=== PATIENT | male | born 1970 | race Caucasian/White ===

== ENCOUNTER → 2019-09-13 08:30 | Outpatient (CLI) | payer BC, SELFPAY ==
--- NOTE | 2019-09-06 02:49 | HP_ITS ---
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 Is patient in pain?: Yes PFSH Medical History (Updated 09/06/19 @ 14:41 by Wilma Medina) Intermittent diarrhea (Acute) Nausea (Acute) Abdominal pain (Acute) Surgical History (Updated 09/06/19 @ 14:41 by Wilma Medina) No significant past surgical history (Acute) Family History (Updated 09/06/19 @ 14:42 by Wilma Medina) Mother Arthritis Lung cancer Liver cancer Kidney disease Diabetes Social History (Updated 09/06/19 @ 14:49 by Dimitris Sims MD) Smoking Status: Current every day smoker Smokeless tobacco user: snuff alcohol intake: current alcohol intake frequency: a few times a month substance use type: does not use caffeine: Yes what type of physical activity do you participate in: none frequency: does not exercise HPI HPI HPI: FELIPE ESTRADA, is a 49 M who presents to the office today for HPI HPI Surgical H&P: Yes HPI: FELIPE ESTRADA, is a 49 M who presents to the office today for umbilical hernia. The patient reports that is been there for at least 6 months and it is bothering him more and more. ROS General General: No weight change or fatigue Cardio Cardiovascular: No murmur, pacemaker, heart disease, atrial fibrillation, high blood pressure, heart attack, heart stent, palpitations, shortness of breat with exertion or chest pain Psych Psychiatric: No depression or anxiety Resp Respiratory: No shortness of breath, No sleep apnea, No cough, No COPD, No asthma, No emphysema, No wheezing Gastro Gastrointestinal: Yes abdominal pain, No nausea or vomiting, No diarrhea, No constipation, No blood in stool, No acid reflux, No hemorrhoids, No ulcers, No gallbladder problem, No black,tarry stools Additional Details: Umbilical hernia José Antonio Hematologic: No blood thinners Exam Const General: cooperative Orientation: alert, oriented x3 Resp Effort & Inspection: normal respiratory effort Auscultation: clear to auscultation bilaterally Cardio Rate: regular rate Rhythm: regular rhythm Heart Sounds: no murmurs GI Inspection: non-distended Palpation: soft, hernia umbilical, nontender Assessment & Plan Problems 1. Umbilical hernia without obstruction and without gangrene K42.9 Plan The patient has an obvious umbilical hernia. It is easily reducible. The defect is less than 1 cm. He is also having a small amount of bulging just superior to the umbilicus. It is possible that he has a very small ventral hernia just superior to this. I discussed repair with the patient in detail. He would like to avoid mesh if possible. I did agree to perform a suture repair. I also informed her that he would have to do no heavy lifting following surgery. Dimitris Sims MD Pager: [facility] [address] [place] [address], [address] [place] [address] Office: Coding Level of Care Code Off vis,new,level 3 Diagnoses Umbilical hernia without obstruction and without gangrene K42.9 ??Obstruction and gangrene presence: without obstruction or gangrene 09/06/19 1450 <Electronically signed by Dimitris gatica MD> Date _ Dimitris Sims MD I have re-examined the patient. There are no clinical changes since date of exam.
[2019-09-06 14:42] VITALS: BMI 30.8
--- NOTE | 2019-09-13 07:17 | EKG12_ITS ---
Test Reason : PRE-OP Blood Pressure : / mmHG Vent. Rate : 054 BPM Atrial Rate : 054 BPM P-R Int : 198 ms QRS Dur : 098 ms QT Int : 412 ms P-R-T Axes : 039 031 051 degrees QTc Int : [address] & T wave abnormality, consider anterior ischemia Abnormal ECG Confirmed by SABIHA SANON, JERICA ([id number]), electronic news gathering editor SHANEL ESCOBAR ([id number]) on 09/18/2019 11:16:26 AM Referred By: Dimitris Sims Confirmed By:JERICA LANDIS MD
[2019-09-13 07:42] VITALS: BP 111/64; PULSE 68; RESP 16; TEMP 36.4; O2SAT 96; BMI 30.1
[2019-09-13] MEDS: Lactated Ringers 1,000 ML 100 ML IV (07:57)
[2019-09-13 08:10] LABS: Hematocrit 44.2 % (40-54); Hemoglobin 14.6 g/dL (13.0-16.5); Mean Corpuscular Hgb 28.7 pg (27.0-32.0); Mean Corpuscular Volume 86.8 fL (80-94); Mean Platelet Vol. 10.2 fl (6.2-12.0); Platelet Count 219 K/mm3 (150-450); RBC Distribution Width CV 12.3 % (11.6-14.6); RBC Distribution Width SD 39.4 fl (35.1-43.9); Red Blood Count 5.09 M/mm3 (4.6-6.2)
--- NOTE | 2019-09-13 08:35 | SUR.PREOP ---
Dr. Wilhelm at bedside discussing with pt and pt's abnormal EKG and surgery to be cancelled. This RN has called [facility] and appointment is made for Monday 09/18 to see [email or web address] android developer, Pt and Pt's informed and verbalize understanding
--- NOTE | 2019-09-15 11:00 | PCM.OPRPT ---
Problem List (1) Umbilical hernia Status: Acute Qualifiers: Obstruction and gangrene presence: without obstruction or gangrene Qualified Code(s): K42.9 - Umbilical hernia without obstruction or gangrene Report of Operation Date of Procedure: 09/13/19 Pre-Operative Diagnosis: Umbilical hernia Post-Operative Diagnosis: Same Surgery/Procedure Performed:: Umbilical hernia repair Description of Procedure: Patient was brought back to the operating room and general anesthesia was induced. A curvilinear incision was marked in a superior umbilicus and injected with local anesthetic. An incision was then made and deepened to the fascia. The umbilical stalk was surrounded and taken off of the hernia sac. The hernia sac was easily reduced. The defect was very small. It was closed with interrupted 0 PDS sutures and then the umbilical stalk was sutured to the anterior fascia using a 3-0 Vicryl suture. The skin was reapproximated with a running 4-0 Monocryl suture and Steri-Strips and bandages. Patient tolerated the procedure well was brought to PACU in stable condition. - Admit VTE Documentation VTE Mechan Device Prophylaxis: SCD's
[2019-09-18 10:56] VITALS: BMI 30.1
== END ==
PROVIDERS: Anesthesiology; Family Provider Family Medicine; PCP Family Medicine; Referring Provider Surgery; Visit Provider Surgery
PROC: (CPT 49585; principal; 2019-09-13 08:30)
DX: K42.9 Umbilical hernia without obstruction or gangrene (principal); F17.200 Nicotine dependence, unspecified, uncomplicated; F17.220 Nicotine dependence, chewing tobacco, uncomplicated
CPT/HCPCS: 49585; 85027; 93005; J7120; J2405

== ENCOUNTER 2019-09-27 09:26 | Day surgery (SDC) | payer BC, SELFPAY ==
--- NOTE | 2019-09-06 02:49 | HP_ITS ---
Intake Vital Signs 09/06/19 Height 5 ft 10.5 in 09/06/19 Weight: 218 lb 09/06/19 BMI 30.8 09/06/19 BP 123/84 H 09/06/19 Blood Pressure Location Rt brachial 09/06/19 Position Sitting 09/06/19 Respiration 14 09/06/19 Pulse 73 09/06/19 Pulse Source Monitor 09/06/19 Temp 98.5 F 09/06/19 Temp Source Oral 09/06/19 Pulse Oximetry (%) 97 09/06/19 Oxygen Delivery Method room air Intake Visit Reasons: Umbilical Hernia Car Parker Required: No Is patient in pain?: Yes PFSH Medical History (Updated 09/06/19 @ 14:41 by Wilma Medina) Intermittent diarrhea (Acute) Nausea (Acute) Abdominal pain (Acute) Surgical History (Updated 09/06/19 @ 14:41 by Wilma Medina) No significant past surgical history (Acute) Family History (Updated 09/06/19 @ 14:42 by Wilma Medina) Mother Arthritis Lung cancer Liver cancer Kidney disease Diabetes Social History (Updated 09/06/19 @ 14:49 by Dimitris Sims MD) Smoking Status: Current every day smoker Smokeless tobacco user: snuff alcohol intake: current alcohol intake frequency: a few times a month substance use type: does not use caffeine: Yes what type of physical activity do you participate in: none frequency: does not exercise HPI HPI HPI: FELIPE ESTRADA, is a 49 M who presents to the office today for HPI HPI Surgical H&P: Yes HPI: FELIPE ESTRADA, is a 49 M who presents to the office today for umbilical hernia. The patient reports that is been there for at least 6 months and it is bothering him more and more. ROS General General: No weight change or fatigue Cardio Cardiovascular: No murmur, pacemaker, heart disease, atrial fibrillation, high blood pressure, heart attack, heart stent, palpitations, shortness of breat with exertion or chest pain Psych Psychiatric: No depression or anxiety Resp Respiratory: No shortness of breath, No sleep apnea, No cough, No COPD, No asthma, No emphysema, No wheezing Gastro Gastrointestinal: Yes abdominal pain, No nausea or vomiting, No diarrhea, No constipation, No blood in stool, No acid reflux, No hemorrhoids, No ulcers, No gallbladder problem, No black,tarry stools Additional Details: Umbilical hernia José Antonio Hematologic: No blood thinners Exam Const General: cooperative Orientation: alert, oriented x3 Resp Effort & Inspection: normal respiratory effort Auscultation: clear to auscultation bilaterally Cardio Rate: regular rate Rhythm: regular rhythm Heart Sounds: no murmurs GI Inspection: non-distended Palpation: soft, hernia umbilical, nontender Assessment & Plan Problems 1. Umbilical hernia without obstruction and without gangrene K42.9 Plan The patient has an obvious umbilical hernia. It is easily reducible. The defect is less than 1 cm. He is also having a small amount of bulging just superior to the umbilicus. It is possible that he has a very small ventral hernia just superior to this. I discussed repair with the patient in detail. He would like to avoid mesh if possible. I did agree to perform a suture repair. I also informed her that he would have to do no heavy lifting following surgery. Dimitris Sims MD Pager: [facility] [address] [place] [address], [address] [place] [address] Office: Coding Level of Care Code Off vis,new,level 3 Diagnoses Umbilical hernia without obstruction and without gangrene K42.9 ??Obstruction and gangrene presence: without obstruction or gangrene 09/06/19 1450 <Electronically signed by Dimitris gatica MD> Date _ Dimitris Sims MD I have re-examined the patient. There are no clinical changes since date of exam.
[2019-09-18 10:56] VITALS: BMI 30.1
[2019-09-27] VITALS (7 sets, daily range): BP systolic 94–108; BP diastolic 53–72; PULSE 50–64; RESP 14–16; TEMP 36.3–36.8; O2SAT 92–98; BMI 30.1
[2019-09-27] MEDS: Lactated Ringers 1,000 ML 100 ML IV (10:21)
[2019-09-27] MEDS: Bupiv/Epi 0.5% Mpf 30 ML Vial (11:06)
--- NOTE | 2019-09-27 11:25 | PCM.OPRPT ---
Problem List (1) Umbilical hernia Status: Acute Qualifiers: Obstruction and gangrene presence: without obstruction or gangrene Qualified Code(s): K42.9 - Umbilical hernia without obstruction or gangrene (2) Ventral hernia Status: Acute Qualifiers: Obstruction and gangrene presence: without obstruction or gangrene Qualified Code(s): K43.9 - Ventral hernia without obstruction or gangrene Report of Operation Date of Procedure: 09/27/19 Pre-Operative Diagnosis: 1. Umbilical hernia. 2. Ventral hernia Post-Operative Diagnosis: Same Surgery/Procedure Performed:: 1. Umbilical hernia repair. 2. Ventral hernia repair Description of Procedure: The patient was brought back to the operating room and MAC anesthesia was induced. The abdomen was prepped and draped in usual sterile fashion. A curvilinear incision was marked above the umbilicus and anesthetized with local anesthetic. Incision was then made and the umbilical stalk was elevated off of the fascia. This dissection of the subcutaneous base was also taken superiorly. The patient had a small umbilical hernia measuring 8 mm. He also had a ventral hernia above this that was separate that measured approximately 5 mm. Both of the small amount of fat protruding from these hernias was reduced. Both of the defects were closed with interrupted 0 PDS sutures. The defects were both completely closed. The umbilical stalk was then re-approximated to the fascia using a 3-0 Vicryl suture and the incision was irrigated and suctioned dry. The incision was then closed with interrupted 3-0 Vicryl sutures as well as a running 4-0 Monocryl suture. Steri-Strips and and a bandage were applied. Patient tolerated the procedure well was brought to PACU in stable condition.
--- NOTE | 2019-09-27 11:30 | PCM.DC.HER ---
Discharge Diet: Light diet - advance as tolerated Discharge Activity: Return to Normal Activity, May Not Drive - for 2-3 days or while taking narcotic pain meds., May Shower - with the bandage in place 1-2 days after surgery. Lifting Restrictions: 20 pounds for 4 weeks. Additional Activity Instructions:: Climbing stairs is fine, walking is encouraged. Sitting in bed may be uncomfortable. Sitting up using your lateral muscles (sitting up sideways) is usually more comfortable. Do not drive, work heavy equipment of sign legal documents for 24 hours. Pain medications may cause nausea, you should typically eat light foods as you take your pain medications. Pain medications may also cause constipation. If you have difficulty with this, discuss with your doctor. Call your doctor if your incision/area has: Continuous Slow Oozing, Sudden Increased Bleeding, Increased Pain/ Swelling, Increased Redness, Foul Smelling Discharge Call your doctor if you observe: Fever of 101 or Higher Suture Line Care: Avoid Pulling/Pushing, Avoid Pinching/Bending Change Dressing in (Days):: 3 - Leave steri-strips for 1 week. May protect with a guaze bandaid. Cleanse incision/area with: Keep Dressing Clean & Dry Allergies/Adverse Reactions: Allergies Penicillins Allergy (Unknown, Verified 09/26/19 10:34) Unknown Medications to take at Discharge Oxycodone HCl/Acetaminophen [Percocet 5-325 mg Tablet] 1 - 2 tab PO Q6H PRN 5 Days #15 tablet 09/27/19 The following prescriptions were given: Oxycodone HCl/Acetaminophen [Percocet 5-325 mg Tablet] 1 - 2 tab PO Q6H PRN 5 Days #15 tablet PRN Reason: Pain Score 4-10/10 Transmission Status: Sent to [facility] Primary Care Physician: Sammy Min MD [Primary Care Provider] - Test Results: Test results from this visit will be discussed in further detail at your follow-up appointment, if applicable.
[2019-09-27] MEDS: Acetaminophen 325 MG Tablet 650 MG PO (12:52)
[2019-09-27] MEDS: oxyCODONE 5 MG Tablet 10 MG PO (12:53)
== END 2019-09-27 13:14 | disposition home or self-care (01) ==
LOC: SDC 09:27 → AC 09:36
PROVIDERS: PCP Family Medicine; Referring Provider Surgery; Visit Provider Surgery
PROC: (CPT 49560; principal; 2019-09-27 10:45)
DX: K42.9 Umbilical hernia without obstruction or gangrene (principal); K43.9 Ventral hernia without obstruction or gangrene; F17.220 Nicotine dependence, chewing tobacco, uncomplicated; F17.200 Nicotine dependence, unspecified, uncomplicated; G47.33 Obstructive sleep apnea (adult) (pediatric); Z91.19 Patient's noncompliance with other medical treatment and regimen
CPT/HCPCS: 00830; 49560; 49585; 85027; 93005; J7120; J2405

== ENCOUNTER → 2019-11-12 | Outpatient (CLI) | payer BC, SELFPAY ==
[2019-09-27 09:57] VITALS: BMI 30.1
--- NOTE | 2019-11-12 07:08 | ECHOCS_ITS ---
Reason For Study: ABN EKG Procedure This was a 2D Doppler, Color Flow transthoracic echocardiogram. Contrast injection was performed. Exam performed in department. Left Ventricle Normal LV size. The estimated ejection fraction is 55 %. Normal diastology for age. No regional wall motion abnormalities noted. Right Ventricle Normal RV size. Normal systolic function. Atria Normal left atrium. Normal right atrium. No doppler evidence for ASD. Mitral Valve There is no mitral valve stenosis. Trivial mitral valve insufficiency. Tricuspid Valve There is no tricuspid stenosis. Trivial tricuspid valve insufficiency. Pulmonary artery systolic pressure is 25 mmHg. Aortic Valve Trisinus/trileaflet aortic valve. There is no aortic stenosis. No aortic valve insufficiency. Pulmonic Valve There is no pulmonic valvular stenosis. No pulmonic valve insufficiency. Great Vessels Normal aortic root. Pericardium/Pleural No pericardial effusion. Medication Diluted definity 2.0ml given slow IV push to enhance endocardial definition. MMode/2D Measurements & Calculations LVIDd: 5.3 cm IVSd: 0.69 cm Ao root diam: 3.5 cm LVIDs: 4.0 cm LVPWd: 0.74 cm RVDd: 3.8 cm FS: 24.8 % LAV(MOD-bp): 59.8 ml EDV(MOD-sp4): 141.4 ml EDV(MOD-sp2): 158.5 ml LAV(MOD-bp) Indexed: 27.5 ml/m2 ESV(MOD-sp4): 95.8 ml EF(MOD-sp2): 60.4 % LAV(MOD-sp2): 63.6 ml EF(MOD-sp4): 32.2 % LAV(MOD-sp4): 50.8 ml SV(MOD-sp4): 45.5 ml SV(MOD-sp2): 95.8 ml LA A4 area: 19.1 cm2 LA dimension(2D): 4.7 cm RA A4 area: 16.4 cm2 Time Measurements MV dec time: 0.17 sec Doppler Measurements & Calculations MV E max polo: 86.4 cm/sec Lat Peak E' Polo: 8.4 cm/sec Med Peak E' Polo: 11.7 cm/sec MV A max polo: 58.6 cm/sec E/E' lat: 10.3 E/E' med: 7.4 MV E/A: 1.5 Ao V2 max: 121.5 cm/sec LV V1 max: 106.3 cm/sec PA V2 max: 100.9 cm/sec Ao max P.9 mmHg LV V1 max P.5 mmHg TR max polo: 212.3 cm/sec TR max P.1 mmHg Interpretation Summary The study was technically difficult. Contrast injection was performed. The estimated ejection fraction is 55 %. Normal diastology for age. Trivial mitral valve insufficiency. Trivial tricuspid valve insufficiency. Pulmonary artery systolic pressure is 25 mmHg. The study was technically difficult. Contrast injection was performed. Ordering Physician: Jenni Gonzalez Referring Physician: MAK DRISCOLL Performed By: Doris Gong, BONILLA, RVT
--- NOTE | 2019-11-12 13:33 | STRESSREP_ITS ---
Stress Test Report Date: 11/12/2019 Procedure: Exercise tolerance test/imaging study Indications: Abnormal EKG, dyspnea on exertion Consent: Per the patient Procedure: The patient exercised on a Gallito protocol for 9 minutes achieving a peak heart rate of 153 bpm (88% predicted maximal heart rate) with a peak blood pressure 180/78 mmHg and a peak MET capacity of 10.1 METs. The baseline ECG demonstrated normal sinus rhythm, nonspecific ST-T changes. The peak exercise ECG demonstrated no significant ischemic changes. EKG during recovery revealed no significant ischemic changes [There were no cardiac dysrhythmias pretest, during exercise, or recovery]. The functional capacity was considered normal for age. There was [no complaint of chest discomfort during exercise or recovery]. The examination was discontinued secondary to shortness of breath. Impression: 1. Technically adequate (percent predicted maximal heart rate greater than 85%) exercise tolerance test 2. Stress test is negative for exercise-induced EKG changes of ischemia 3. The test test is negative for exercise-induced chest pain 4. Functional capacity is normal for age 5. Nuclear images pending Myocardial perfusion imaging study: Technique: The patient was injected with 14.7 mCi of technetium 99m Cardiolite and subsequently rest SPECT Cardiolite nuclear imaging was obtained in the horizontal long, vertical long, and short axis views. The patient exercised on a Gallito protocol. Please see above for details. The patient was injected with 44.6 mCi of technetium 99m Cardiolite and subsequently stress SPECT Cardiolite nuclear imaging was obtained in the horizontal long, vertical long, and short axis views. A gated Cardiolite study at peak stress was obtained. Interpretation: Rest and stress SPECT Cardiolite nuclear imaging status post realignment, normalization, and attenuation correction, demonstrates mild decrease in the radioisotope uptake in the apex on both the rest and stress images. There is no significant reversibility. The gated Cardiolite study demonstrates no significant regional wall motion abnormalities. These findings are suggestive of apical thinning, normal variant. There is no evidence of significant ischemia or infarction.. The reported LVEF is 60 %. Impression: 1. There is no evidence of significant ischemia or infarction. 2. The gated Cardiolite study reports an LVEF of 60 %. This note was generated with [employer] software. It may contain incorrect words, spelling, and punctuation that were not noted in checking the note before signing.
== END | disposition home or self-care (01) ==
LOC: CVS 07:08
PROVIDERS: PCP Family Medicine; Referring Provider Specialist; Visit Provider Specialist
DX: R94.31 Abnormal electrocardiogram [ECG] [EKG] (principal); R06.09 Other forms of dyspnea
CPT/HCPCS: 78452; 93017; 93306; A9500; Q9957; A4216; C8929

== ENCOUNTER → 2020-10-27 11:39 | Outpatient (CLI) | payer BC, SELFPAY ==
[2020-03-09 14:36] VITALS: BMI 31.2
[2020-10-27 15:23] LABS: Erythrocyte Sedimentation Rate 6 mm/hr (0-20)
[2020-10-27 15:27] LABS: Absolute Lymphocyte Count 0.76 X10^3/uL (0.83-4.51); Basophil# 0.02 X10^3/uL; Basophil% 0.5 % (0-1); Eosinophil# 0.08 X10^3/uL; Eosinophils% 1.9 % (0-5); Lymphocyte # 0.76 X10^3/ul (4.0); Lymphocyte % 17.7 % (19-41); Mean Corp Hgb Conc 31.9 g/dL (32-36); Mean Corpuscular Hgb 28.5 pg (27.0-32.0); Mean Corpuscular Volume 89.4 fL (80-94); Mean Platelet Vol. 10.3 fl (6.2-12.0); Monocyte# 0.41 X10^3/uL; Monocyte% 9.5 % (0-10); NRBC Flagged by Analyzer 0 % (0-5); Neutrophil # 3.02 X10^3/uL (2.7-7.7); Neutrophil % 70.2 % (47-70); Platelet Count 213 K/mm3 (150-450); RBC Distribution Width CV 12.7 % (11.6-14.6); RBC Distribution Width SD 41.7 fl (35.1-43.9); Red Blood Count 5.26 M/mm3 (4.6-6.2); White Blood Count 4.3 K/mm3 (4.4-11.0)
[2020-10-27 15:35] LABS: AST(SGOT) 19 U/L (15-37); Alanine Aminotransfer ALT/SGPT 44 U/L (16-61); Albumin, Serum 3.8 g/dL (3.2-5.0); Alkaline Phosphatase 87 U/L (45-117); Anion Gap 5 (5-15); BUN 13 mg/dL (7-18); BUN/Creat Ratio 11.4 RATIO (10-20); CRP 6.48 mg/L (0.0-3.0); Calcium,Total 8.8 mg/dL (8.5-10.1); Chloride 107 mmol/L (98-107); Creatinine, Serum 1.14 mg/dL (0.70-1.30); EST Glomerular Filtration Rate 73 mL/min (>60); Est Glom Filt Rate - Afr Amer 88 mL/min (>60); Globulin 3.7 g/dL (2.2-4.2); Glucose 95 mg/dL (74-106); Lipase 72 U/L (73-393); Magnesium 2.1 mg/dL (1.6-2.6); Protein, Total 7.5 g/dL (6.4-8.2); Sodium Level 139 mmol/L (136-145); Thyroid Stim Hormone (TSH) 2.07 uIU/mL (0.358-3.74)
[2020-10-30 16:30] LABS: ANTINUCLEAR ANTIBODIES DIRECT Negative (Negative)
== END ==
PROVIDERS: PCP Family Medicine; Referring Provider Family Medicine; Visit Provider Family Medicine
DX: R10.814 Left lower quadrant abdominal tenderness (principal); R19.7 Diarrhea, unspecified
CPT/HCPCS: 36415; 80053; 83690; 83735; 84443; 85025; 85652; 86038; 86140

== ENCOUNTER 2020-10-31 07:17 | Emergency (ER) | payer BC, SELFPAY ==
[2020-03-09 14:36] VITALS: BMI 31.2
[2020-10-31 07:20] VITALS: BP 112/43; PULSE 98; RESP 17; TEMP 36.7; O2SAT 97; BMI 29.7
--- NOTE | 2020-10-31 07:42 | ED.VIS.GEN ---
History of Present Illness Chief Complaint: Nausea/Vomiting/Diarrhea Informant: Patient Limited by: Arnie Narrative: 50-year-old male with no significant medical history presenting with nausea/vomiting. Patient states that his had COVID-19 symptoms on Monday and was diagnosed on Monday. He started having nausea/vomiting on . He denies chest pain or palpitations but does state that he has a mild cough. He has been nauseous. He complains of body aches, chills. He is not had fever.. Past Medical History - Allergies and Home Meds Allergies/Adverse Reactions: Allergies Penicillins Allergy (Unknown, Verified 10/31/20 07:19) Unknown Primary Care Physician: Sammy Min MD [Primary Care Provider] - Prior records reviewed: Yes Surgical History: noncontributory Lives: Spouse/ Significant Other Alcohol: None Drugs: None Review of Systems General: Reports: Chills. Denies: Fever, Malaise, Subjective Eyes: Denies: Visual changes - bilaterally, Diplopia ENT: Denies: Rhinorrhea, Sore throat Respiratory: Reports: Cough. Denies: Dyspnea, Sputum Genitourinary: Denies: Dysuria, Hematuria, Frequency Musculoskeletal: Reports: Myalgias. Denies: Arthralgias, Neck pain, Back pain Skin: Denies: Rash, Abscess Neurological: Denies: Headache, Weakness, Parasthesia Psych: Denies: Depression, Anxiety Endocrine: Denies: Polyuria, Polydipsia Hematologic: Denies: Easy bruising, Easy bleeding Physical Exam Vital Signs/Narrative: Vital Signs Temp Pulse Resp BP Pulse Ox 10/31/20 07:20 98.1 F 98 17 112/43 L 97 Inital Vital Signs reviewed: Yes General: Well nourished, No Acute Distress Head: Normocephalic, Atraumatic Eyes: Perrl, EOMI ENT: Moist mucous membranes, No rhinorrhea Cardiovascular: Regular rate, Regular rhythm Extremities: Nontender, No edema Skin: Normal color, No rash. Negative for: Cyanosis, Diaphoresis, Jaundice Neurological: Alert, Oriented x3, Weakness Psychological: Normal affect, Normal Mood Diagnostic/Tx/Re-eval Clinical Impression(s) from Imaging Studies Chest X-Ray 10/31/20 07:43 IMPRESSION: No active pulmonary disease. Electronically Signed: Kush Whyte MD at 8:38 EST Tel , Service support , Laboratory Data 10/31/20 10/31/20 07:45 07:45 WBC 4.7 RBC 5.65 Hgb 15.9 Hct 49.5 MCV 87.6 MCH 28.1 MCHC 32.1 RDW Std Deviation 39.8 RDW Coeff of Maite 12.4 Plt Count 222 MPV 10.1 Immature Gran % (Auto) 0.200 Neut % (Auto) 69.9 Lymph % (Auto) 19.7 [place] % (Auto) 9.4 Eos % (Auto) 0.6 Baso % (Auto) 0.2 Absolute Neuts (auto) 3.3 Absolute Lymphs (auto) 0.92 Nucleated RBC % 0 Sodium 138 Potassium 3.8 Chloride 104 Carbon Dioxide 28.0 Anion Gap 6 BUN 13 Creatinine 1.36 H Estim Creat Clear Calc 70.75 Est GFR (MDRD) Af Amer 72 Est GFR (MDRD) Non-Af 59 L BUN/Creatinine Ratio 9.6 L Glucose 113 H Calcium 8.8 Total Bilirubin 0.40 AST 21 ALT 37 Alkaline Phosphatase 87 Total Protein 8.2 Albumin 3.9 Globulin 4.3 H Albumin/Globulin Ratio 0.9 - Medical Decision Making 50-year-old male presenting with nausea, vomiting secondary to likely illness with COVID-19. ODT Zofran with good relief of his nausea. Lab work-up was unremarkable with exception of a slight bump in his creatinine. Chest x-ray as interpreted by myself shows no acute cardiopulmonary process. Patient did test positive for COVID-19. He was given quarantine and return precautions. He is given Zofran for home. Impression: 1. Nausea/vomiting 2. COVID-19 ED Disposition - Plan for ED Patient: Disposition: Home or Assisted Living Instructions: Coronavirus Disease 2019 (COVID-19): Caring for Yourself or Others, ED Diet for Vomiting or Diarrhea Adult Prescriptions: Ondansetron [Zofran Odt] 4 mg PO Q8H PRN PRN #20 tab PRN Reason: Nausea Prescription Printed Referrals: Sammy Min MD [Primary Care Provider] -
--- NOTE | 2020-10-31 07:43 | RAD_ITS ---
STUDY: X-RAY CHEST REASON FOR EXAM: Male, 50 years old. Cough. TECHNIQUE: Single AP portable view of the chest. COMPARISON: 01/31/2020 FINDINGS: The lungs are somewhat hyperinflated. No focal infiltrate is seen. There is no demonstrated pleural abnormality. Normal size heart. Normal mediastinum and yoly. Normal visualized pulmonary arteries. Normal visualized aortic arch and descending thoracic aorta. Normal visualized thoracic spine. Normal visualized ribs, clavicles, and shoulders. There is no demonstrated abnormality of the visualized soft tissue structures of the upper abdomen. RAD/Chest 1 View (Portable) IMPRESSION: No active pulmonary disease. Electronically Signed: Kush Whyte MD at 8:38 EST Tel , Service support ,
[2020-10-31] MEDS: Ondansetron ODT 4 MG Tablet PO (07:58)
[2020-10-31 08:05] LABS: Absolute Lymphocyte Count 0.92 X10^3/uL (0.83-4.51); Absolute Neutrophil Count 3.3 X10^3/uL (2.0-7.7); Basophil# 0.01 X10^3/uL; Basophil% 0.2 % (0-1); Eosinophil# 0.03 X10^3/uL; Eosinophils% 0.6 % (0-5); Hematocrit 49.5 % (40-54); Hemoglobin 15.9 g/dL (13.0-16.5); Lymphocyte # 0.92 X10^3/ul (4.0); Lymphocyte % 19.7 % (19-41); Mean Corp Hgb Conc 32.1 g/dL (32-36); Mean Corpuscular Hgb 28.1 pg (27.0-32.0); Mean Corpuscular Volume 87.6 fL (80-94); Mean Platelet Vol. 10.1 fl (6.2-12.0); Monocyte# 0.44 X10^3/uL; Monocyte% 9.4 % (0-10); NRBC Flagged by Analyzer 0 % (0-5); Neutrophil # 3.26 X10^3/uL (2.7-7.7); Neutrophil % 69.9 % (47-70); Platelet Count 222 K/mm3 (150-450); RBC Distribution Width CV 12.4 % (11.6-14.6); RBC Distribution Width SD 39.8 fl (35.1-43.9); Red Blood Count 5.65 M/mm3 (4.6-6.2); White Blood Count 4.7 K/mm3 (4.4-11.0)
[2020-10-31 08:20] LABS: ALB/GLOB Ratio 0.9 RATIO (0.9-2.4); AST(SGOT) 21 U/L (15-37); Alanine Aminotransfer ALT/SGPT 37 U/L (16-61); Albumin, Serum 3.9 g/dL (3.2-5.0); Alkaline Phosphatase 87 U/L (45-117); Anion Gap 6 (5-15); BUN 13 mg/dL (7-18); BUN/Creat Ratio 9.6 RATIO (10-20); Calcium,Total 8.8 mg/dL (8.5-10.1); Chloride 104 mmol/L (98-107); Creatinine, Serum 1.36 mg/dL (0.70-1.30); EST Glomerular Filtration Rate 59 mL/min (>60); Est Glom Filt Rate - Afr Amer 72 mL/min (>60); Estimated Creatinine Clearance 70.75 ml/min; Globulin 4.3 g/dL (2.2-4.2); Glucose 113 mg/dL (74-106); Potassium 3.8 mmol/L (3.5-5.1); Protein, Total 8.2 g/dL (6.4-8.2); Sodium Level 138 mmol/L (136-145)
[2020-10-31 09:43] VITALS: BP 141/79; PULSE 62; RESP 15; O2SAT 97
== END 2020-10-31 09:43 | disposition home or self-care (01) ==
PROVIDERS: Emergency Provider Student in an Organized Health Care Education/Training Program; PCP Family Medicine
DX: U07.1 COVID-19 (principal); R11.2 Nausea with vomiting, unspecified
CPT/HCPCS: 71045; 80053; 85025; 87426; 99283; A4216

== ENCOUNTER → 2020-11-10 | Outpatient (CLI) | payer BC, SELFPAY ==
[2020-10-31 07:20] VITALS: BMI 29.7
[2020-11-13 09:36] LABS: H. PYLORI STOOL AG Negative (Negative)
[2020-11-13 13:43] LABS: Giardia Lamblia, Stool EIA Negative (Negative)
== END | disposition home or self-care (01) ==
LOC: LABSPEC 13:36
PROVIDERS: PCP Family Medicine; Referring Provider Family Medicine; Visit Provider Family Medicine
DX: R10.814 Left lower quadrant abdominal tenderness (principal)
CPT/HCPCS: 87177; 87209; 87329; 87506

== ENCOUNTER 2020-12-25 06:27 | Day surgery (SDC) | payer BC, SELFPAY ==
[2020-12-01 14:04] VITALS: BMI 28.8
--- NOTE | 2020-12-25 06:35 | HP.PCM_ITS ---
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 Is patient in pain?: Yes (llq abdomen) Allergies Penicillins Allergy (Unknown, Verified 12/01/20 14:05) Unknown Medications omeprazole 20 mg tablet,delayed release 20 mg PO DAILY #60 tablet 12/01/20 [Rx Confirmed 12/01/20] [facility] Medical History Abnormal EKG (Chronic) Nausea (Chronic) Abdominal pain (Resolved) Chest discomfort (Resolved) Dyspnea on exertion (Resolved) Intermittent diarrhea (Resolved) Umbilical hernia (Resolved) Umbilical hernia (Resolved) Ventral hernia (Resolved) Preop cardiovascular exam (Inactive) Surgical History History of umbilical hernia repair (Resolved) History of ventral hernia repair (Resolved) Family History Mother Arthritis Lung cancer Liver cancer Kidney disease Diabetes Brother Thyroid disorder Ulcerative colitis Social History (Updated 12/01/20 @ 14:[address] Dimitris Sims MD) Smoking Status: Former smoker Smokeless tobacco user: snuff how long ago did patient quit smokin years ago alcohol intake: current alcohol intake frequency: a few times a month substance use type: does not use caffeine: Yes Type: carbonated beverages Number of servings: 1 what type of physical activity do you participate in: none frequency: does not exercise HPI HPI HPI: FELIPE ESTRADA, is a 50 M who presents to the office today for HPI HPI Surgical H&P: Yes HPI: FELIPE ESTRADA, is a 50 M who presents to the office today for left lower quadrant pain as well as diarrhea. The patient was also experiencing GERD. Patient reports he had Covid at the beginning of last month and at that time had diarrhea and then this turned into normal bowel movements with antibiotics for his subsequent pneumonia. Patient also reports he is having epigastric discomfort as well as dyspepsia and bloating. Patient does not report blood in the stool. ROS General General: No weight change or fatigue Cardio Cardiovascular: No murmur, pacemaker, heart disease, atrial fibrillation, high blood pressure, heart attack, heart stent, palpitations, shortness of breat with exertion or chest pain Psych Psychiatric: No depression or anxiety Resp Respiratory: No shortness of breath, No sleep apnea, No cough, No COPD, No asthma, No emphysema, No wheezing Gastro Gastrointestinal: Yes abdominal pain, No nausea or vomiting, Yes diarrhea, No constipation, No blood in stool, Yes acid reflux, No hemorrhoids, No ulcers, No gallbladder problem, No black,tarry stools José Antonio Hematologic: No blood thinners Exam Const General: cooperative Orientation: alert, oriented x3 Resp Effort & Inspection: normal respiratory effort Auscultation: clear to auscultation bilaterally Cardio Rate: regular rate Rhythm: regular rhythm Heart Sounds: no murmurs GI Inspection: non-distended Palpation: soft, nontender Assessment & Plan Problems 1. Gastroesophageal reflux disease, unspecified whether esophagitis present K21.9 2. LLQ abdominal pain R10.32 3. Diarrhea, unspecified type R19.7 Plan The patient is having dyspepsia as well as early satiety and diarrhea. I will perform an EGD and colonoscopy for him. I have also tried a trial of omeprazole. The patient reports his diarrhea recently got better but he did have diarrhea last night. He has also been having left lower quadrant pain. I explained endoscopy in detail to the patient. I explained the risks including but not limited to stroke or heart attack with anesthesia, perforation of the GI tract, bleeding, infection. I explained that any of these could necessitate further emergency surgery. The patient understands and all questions were answered sufficiently. The patient wishes to proceed with procedure. The patient also has a small recurrence of his umbilical hernia but at this time it is very small he would like to continue observation. If he decides he would like surgery I can repair with mesh. Dimitris Sims MD Pager: [facility] [address] [place] [address], [address] [place] [address] Office: I have re-examined the patient. There are no clinical changes since date of exam. The patient has decided to only receive a colonoscopy and he would like to forego his EGD as it did not get precertified by his insurance company. Assessment & Plan Assessment/Plan (1) Diarrhea: Status: Acute Code(s): R19.7 - Diarrhea, unspecified Qualifiers: Diarrhea type: unspecified type Qualified Code(s): R19.7 - Diarrhea, unspecified (2) LLQ abdominal pain: Status: Acute Code(s): R10.32 - Left lower quadrant pain
[2020-12-25 06:49] VITALS: BP 106/75; PULSE 67; RESP 16; TEMP 36.1; O2SAT 98; BMI 30.1
--- NOTE | 2020-12-25 07:00 | HP_ITS ---
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 Required: No Is patient in pain?: Yes (llq abdomen) Allergies Penicillins Allergy (Unknown, Verified 12/01/20 14:05) Unknown Medications omeprazole 20 mg tablet,delayed release 20 mg PO DAILY #60 tablet 12/01/20 [Rx Confirmed 12/01/20] [facility] Medical History Abnormal EKG (Chronic) Nausea (Chronic) Abdominal pain (Resolved) Chest discomfort (Resolved) Dyspnea on exertion (Resolved) Intermittent diarrhea (Resolved) Umbilical hernia (Resolved) Umbilical hernia (Resolved) Ventral hernia (Resolved) Preop cardiovascular exam (Inactive) Surgical History History of umbilical hernia repair (Resolved) History of ventral hernia repair (Resolved) Family History Mother Arthritis Lung cancer Liver cancer Kidney disease Diabetes Brother Thyroid disorder Ulcerative colitis Social History (Updated 12/01/20 @ 14:[address] Dimitris Sims MD) Smoking Status: Former smoker Smokeless tobacco user: snuff how long ago did patient quit smokin years ago alcohol intake: current alcohol intake frequency: a few times a month substance use type: does not use caffeine: Yes Type: carbonated beverages Number of servings: 1 what type of physical activity do you participate in: none frequency: does not exercise HPI HPI HPI: FEILPE ESTRADA, is a 50 M who presents to the office today for HPI HPI Surgical H&P: Yes HPI: FELIPE ESTRADA, is a 50 M who presents to the office today for left lower quadrant pain as well as diarrhea. The patient was also experiencing GERD. Patient reports he had Covid at the beginning of last month and at that time had diarrhea and then this turned into normal bowel movements with antibiotics for his subsequent pneumonia. Patient also reports he is having epigastric discomfort as well as dyspepsia and bloating. Patient does not report blood in the stool. ROS General General: No weight change or fatigue Cardio Cardiovascular: No murmur, pacemaker, heart disease, atrial fibrillation, high blood pressure, heart attack, heart stent, palpitations, shortness of breat with exertion or chest pain Psych Psychiatric: No depression or anxiety Resp Respiratory: No shortness of breath, No sleep apnea, No cough, No COPD, No asthma, No emphysema, No wheezing Gastro Gastrointestinal: Yes abdominal pain, No nausea or vomiting, Yes diarrhea, No constipation, No blood in stool, Yes acid reflux, No hemorrhoids, No ulcers, No gallbladder problem, No black,tarry stools José Antonio Hematologic: No blood thinners Exam Const General: cooperative Orientation: alert, oriented x3 Resp Effort & Inspection: normal respiratory effort Auscultation: clear to auscultation bilaterally Cardio Rate: regular rate Rhythm: regular rhythm Heart Sounds: no murmurs GI Inspection: non-distended Palpation: soft, nontender Assessment & Plan Problems 1. Gastroesophageal reflux disease, unspecified whether esophagitis present K21.9 2. LLQ abdominal pain R10.32 3. Diarrhea, unspecified type R19.7 Plan The patient is having dyspepsia as well as early satiety and diarrhea. I will perform an EGD and colonoscopy for him. I have also tried a trial of omeprazole. The patient reports his diarrhea recently got better but he did have diarrhea last night. He has also been having left lower quadrant pain. I explained endoscopy in detail to the patient. I explained the risks including but not limited to stroke or heart attack with anesthesia, perforation of the GI tract, bleeding, infection. I explained that any of these could necessitate further emergency surgery. The patient understands and all questions were answered sufficiently. The patient wishes to proceed with procedure. The patient also has a small recurrence of his umbilical hernia but at this time it is very small he would like to continue observation. If he decides he would like surgery I can repair with mesh. Dimitris Sims MD Pager: [facility] [address] [place] [address], [address] [place] [address] Office: Orders Orders: Colonoscopy Today R10.32, R19.7 EGD Today K21.9 Medications New: omeprazole 20 mg PO DAILY 60 tabs 0RF Coding Level of Care Code Off vis,est,level 3 Diagnoses Gastroesophageal reflux disease, unspecified whether esophagitis present K21.9 ??Esophagitis presence: esophagitis presence not specified LLQ abdominal pain R10.32 Diarrhea, unspecified type R19.7 ??Diarrhea type: unspecified type
[2020-12-25] MEDS: Lactated Ringers 1,000 ML 100 ML IV (07:07)
[2020-12-25 07:40] VITALS: BP 106/75; BP 83/63; PULSE 58; RESP 16; TEMP 36.2; O2SAT 95
--- NOTE | 2020-12-25 07:40 | OP.CCLET_ITS ---
12/25/2020 Sammy Min [address] [place] [address] Re : [facility] Min This procedure was performed on Friday, December 25, 2020. My impressions and recommendations are as follows: Impressions : - The entire examined colon is normal on direct and retroflexion views. - No specimens collected. Recommendations : - Discharge patient to home. - Resume previous diet. - Continue present medications. - Repeat colonoscopy in 10 years for screening purposes. My findings are described in the full procedure note, which is enclosed. If I can be of further assistance, please feel free to contact me at Doctor phone number(s): , Work: . Sincerely, Dimitris Sims MD 12/25/2020 7:40:01 AM This report has been signed electronically.
--- NOTE | 2020-12-25 07:40 | OP.COLON_ITS ---
Patient Name: Pino Rich Procedure Date: 12/25/2020 7:15 AM Date of : 1970 Age: 50 Procedure: Colonoscopy Indications: Abdominal pain in the left lower quadrant, Clinically significant diarrhea of unexplained origin Providers: Dimitris Sims MD Referring MD: Sammy Min Medicines: Monitored Anesthesia Care Patient Profile: This is a 50 year old male. Refer to note in patient chart for documentation of history and physical. Last Colonoscopy: none. The patient's first colonoscopy is today. Complications: No immediate complications. Procedure: Pre-Anesthesia Assessment: - Prior to the procedure, a History and Physical was performed, and patient medications and allergies were reviewed. The patient's tolerance of previous anesthesia was also reviewed. The risks and benefits of the procedure and the sedation options and risks were discussed with the patient. All questions were answered, and informed consent was obtained. Prior Anticoagulants: The patient has taken no previous anticoagulant or antiplatelet agents. After reviewing the risks and benefits, the patient was deemed in satisfactory condition to undergo the procedure. After I obtained informed consent, the scope was passed under direct vision. Throughout the procedure, the patient's blood pressure, pulse, and oxygen saturations were monitored continuously. The colonoscope was introduced through the anus and advanced to the cecum, identified by appendiceal orifice and ileocecal valve. The colonoscopy was performed without difficulty. The patient tolerated the procedure well. The quality of the bowel preparation was good. Scope In: 7:28:44 AM Scope Withdrawal Time 0 hours 6 minutes 56 seconds Scope Out: 7:38:30 AM Total Procedure Duration Time 0 hours 9 minutes 46 seconds Findings: The entire examined colon appeared normal on direct and retroflexion views. Impression: - The entire examined colon is normal on direct and retroflexion views. - No specimens collected. Recommendation: - Discharge patient to home. - Resume previous diet. - Continue present medications. - Repeat colonoscopy in 10 years for screening purposes. Procedure Code(s): --- Professional --- 41511, Colonoscopy, flexible; diagnostic, including collection of specimen(s) by brushing or washing, when performed (separate procedure) Diagnosis Code(s): --- Professional --- R10.32, Left lower quadrant pain R19.7, Diarrhea, unspecified CPT copyright 2017 [employer]. All rights reserved. The codes documented in this report are preliminary and upon self sealing fuel tank repairer review may be revised to meet current compliance requirements. Dimitris Sims MD 12/25/2020 7:40:01 AM This report has been signed electronically. Number of Addenda: 0 Note Initiated On: 12/25/2020 7:15 AM
[2020-12-25 07:45] VITALS: BP 100/80; BP 106/75; PULSE 67; RESP 16; O2SAT 95
[2020-12-25 07:50] VITALS: BP 102/72; BP 106/75; PULSE 57; RESP 16; O2SAT 98
[2020-12-25 07:55] VITALS: BP 102/73; BP 106/75; PULSE 55; RESP 16; TEMP 36.2; O2SAT 98
[2020-12-25 08:16] VITALS: BP 106/75
== END 2020-12-25 08:44 ==
LOC: EN 06:28 → AC 06:30
PROVIDERS: PCP Family Medicine; Referring Provider Family Medicine; Visit Provider Surgery
PROC: 0DJD8ZZ Inspection of Lower Intestinal Tract, Via Natural or Artificial Opening Endoscopic (ICD-10-PCS; CPT 45378; principal; 2020-12-25 07:25)
DX: R10.32 Left lower quadrant pain (principal); R19.7 Diarrhea, unspecified; K21.9 Gastro-esophageal reflux disease without esophagitis; Z79.899 Other long term (current) drug therapy; Z87.891 Personal history of nicotine dependence
CPT/HCPCS: 45378; J7120; J2405

== ENCOUNTER → 2020-12-30 16:47 | Outpatient (CLI) | payer BC, SELFPAY ==
[2020-12-25 06:49] VITALS: BMI 30.1
--- NOTE | 2020-12-30 16:49 | RAD_ITS ---
STUDY: X-RAY CHEST REASON FOR EXAM: Male, 50 years old. f/u pneumonia/abnormal CXR TECHNIQUE: Frontal and lateral views of the chest. COMPARISON: 10/31/2020.w FINDINGS: There are no confluent pulmonary infiltrates. There is no demonstrated pleural abnormality. Normal size heart. Normal mediastinum and yoly. Normal visualized aortic arch and descending thoracic aorta. There are no demonstrated acute fractures or destructive bone lesions. There is no demonstrated abnormality of the visualized soft tissue structures of the upper abdomen. RAD/Chest PA and Lateral IMPRESSION: Normal x-ray examination of the chest. Electronically Signed: Scooby Fontenot MD at 6:59 EDT , Service support ,
== END ==
PROVIDERS: PCP Family Medicine; Referring Provider Family Medicine; Visit Provider Family Medicine
DX: J18.9 Pneumonia, unspecified organism (principal)
CPT/HCPCS: 71046

== ENCOUNTER → 2022-01-03 | Outpatient (CLI) | payer BC, SELFPAY ==
[2022-01-03 18:04] LABS: Absolute Lymphocyte Count 1.62 X10^3/uL (0.83-4.51); Absolute Neutrophil Count 3.9 X10^3/uL (2.0-7.7); Basophil# 0.03 X10^3/uL; Basophil% 0.5 % (0-1); Eosinophil# 0.23 X10^3/uL; Eosinophils% 3.7 % (0-5); Hematocrit 43.8 % (40-54); Hemoglobin 14.2 g/dL (13.0-16.5); Lymphocyte # 1.62 X10^3/ul (0.83-4.51); Lymphocyte % 26.4 % (19-41); Mean Corp Hgb Conc 32.4 g/dL (32-36); Mean Corpuscular Hgb 28.9 pg (27.0-32.0); Mean Corpuscular Volume 89.2 fL (80-94); Mean Platelet Vol. 10.4 fl (6.2-12.0); Monocyte# 0.39 X10^3/uL; Monocyte% 6.4 % (0-10); NRBC Flagged by Analyzer 0 % (0-5); Neutrophil # 3.86 X10^3/uL (2.7-7.7); Neutrophil % 62.8 % (47-70); Platelet Count 264 K/mm3 (150-450); RBC Distribution Width CV 12.9 % (11.6-14.6); RBC Distribution Width SD 42.5 fl (35.1-43.9); Red Blood Count 4.91 M/mm3 (4.6-6.2); White Blood Count 6.1 K/mm3 (4.4-11.0)
[2022-01-03 18:44] LABS: Anion Gap 6 (5-15); BUN 15 mg/dL (7-18); BUN/Creat Ratio 14.6 RATIO (10-20); Calcium,Total 9.4 mg/dL (8.5-10.1); Chloride 105 mmol/L (98-107); Creatinine, Serum 1.03 mg/dL (0.70-1.30); EST Glomerular Filtration Rate 81 mL/min (>60); Est Glom Filt Rate - Afr Amer 98 mL/min (>60); Glucose 86 mg/dL (74-106); PSA,Total- Diagnostic 1.27 ng/mL (0.0-4.0); Sodium Level 140 mmol/L (136-145)
== END | disposition home or self-care (01) ==
LOC: MFPLAB 16:56
PROVIDERS: PCP Family Medicine; Visit Provider Family Medicine
DX: N40.0 Benign prostatic hyperplasia without lower urinary tract symptoms (principal); J30.2 Other seasonal allergic rhinitis
CPT/HCPCS: 36415; 80048; 84153; 85025

== ENCOUNTER → 2022-01-07 | Outpatient (CLI) | payer BC, SELFPAY ==
--- NOTE | 2022-01-07 08:24 | RAD_ITS ---
PROCEDURE: Upper GI with Small Bowel Follow Through DATE OF EXAMINATION: 01/07/2022.. INDICATION: Male, 51 years old. Epigastric pain and reflux. Diarrhea. FLUOROSCOPY TIME (if supplied): (1:06) minutes/seconds. 23 images were obtained. TECHNIQUE: Radiographic and fluoroscopic images of the distal esophagus, stomach, and entire small intestine were obtained following the oral ingestion of barium. COMPARISON: None. FINDINGS: The apparel embroidery digitizer film of the abdomen demonstrates a normal bowel gas pattern. There are no abnormal calcifications or organomegaly demonstrated. The visualized osseous structures are normal. Air contrast esophagram and upper GI series was obtained. There is no evidence of esophageal obstruction. No mass lesion is seen. There is no evidence of gastroesophageal reflux. The stomach and duodenum are unremarkable. A single contrast small bowel follow through exam demonstrates the small bowel to have no evidence for stricture, ulceration or mass. The transit time is normal at 45 minutes. RAD/Upper GI/w Small Bowel IMPRESSION: 1. Normal air contrast upper GI series and single contrast small bowel follow-through exam. Electronically Signed: Jian Romero MD at 12:30 EDT ,
== END | disposition home or self-care (01) ==
LOC: RAD 08:17
PROVIDERS: PCP Family Medicine; Referring Provider Family Medicine; Visit Provider Family Medicine
DX: K21.9 Gastro-esophageal reflux disease without esophagitis (principal)
CPT/HCPCS: 74246; 74248

== ENCOUNTER → 2022-10-07 | Outpatient (CLI) | payer BC, SELFPAY ==
[2022-10-07 12:41] LABS: Absolute Lymphocyte Count 1.12 X10^3/uL (0.83-4.51); Absolute Neutrophil Count 3.3 X10^3/uL (2.0-7.7); Basophil# 0.04 X10^3/uL; Basophil% 0.8 % (0-1); Eosinophil# 0.27 X10^3/uL; Eosinophils% 5.3 % (0-5); Hematocrit 47.1 % (40-54); Hemoglobin 15.5 g/dL (13.0-16.5); Lymphocyte # 1.12 X10^3/ul (0.83-4.51); Lymphocyte % 22.1 % (19-41); Mean Corp Hgb Conc 32.9 g/dL (32-36); Mean Corpuscular Hgb 29.5 pg (27.0-32.0); Mean Corpuscular Volume 89.7 fL (80-94); Mean Platelet Vol. 10.5 fl (6.2-12.0); Monocyte# 0.32 X10^3/uL; Monocyte% 6.3 % (0-10); NRBC Flagged by Analyzer 0 % (0-5); Neutrophil # 3.31 X10^3/uL (2.7-7.7); Neutrophil % 65.3 % (47-70); Platelet Count 261 K/mm3 (150-450); RBC Distribution Width CV 12.5 % (11.6-14.6); Red Blood Count 5.25 M/mm3 (4.6-6.2); White Blood Count 5.1 K/mm3 (4.4-11.0)
[2022-10-07 13:38] LABS: ALB/GLOB Ratio 1.2 RATIO (0.9-2.4); AST(SGOT) 20 U/L (15-37); Alanine Aminotransfer ALT/SGPT 42 U/L (16-61); Albumin, Serum 4.1 g/dL (3.2-5.0); Alkaline Phosphatase 81 U/L (45-117); Anion Gap 6 (5-15); BUN 12 mg/dL (7-18); BUN/Creat Ratio 11.2 RATIO (10-20); CRP < 2.90 mg/L (0.0-3.0); Calcium,Total 9.5 mg/dL (8.5-10.1); Chloride 106 mmol/L (98-107); Cholesterol 230 mg/dL (200); Creatinine, Serum 1.07 mg/dL (0.70-1.30); EST Glomerular Filtration Rate 78 mL/min (>60); Est Glom Filt Rate - Afr Amer 94 mL/min (>60); Globulin 3.3 g/dL (2.2-4.2); Glucose 99 mg/dL (74-106); High Density Lipoprotein 40 mg/dL; Potassium 4.4 mmol/L (3.5-5.1); Protein, Total 7.4 g/dL (6.4-8.2); Sodium Level 140 mmol/L (136-145); Triglycerides 95 mg/dL; Very Low Density Lipoprotein 19 mg/dL (5-40)
[2022-10-09 10:44] LABS: V-Zoster IgG (Immunity) 262 index (Immune >165)
== END | disposition home or self-care (01) ==
LOC: MTLAB 09:32
PROVIDERS: PCP Family Medicine; Referring Provider Family Medicine; Visit Provider Family Medicine
DX: Z00.01 Encounter for general adult medical examination with abnormal findings (principal); R14.0 Abdominal distension (gaseous); Z83.79 Family history of other diseases of the digestive system
CPT/HCPCS: 36415; 80050; 80053; 80061; 84443; 85025; 86140; 86787

== ENCOUNTER → 2022-10-10 | Outpatient (CLI) | payer BC, SELFPAY ==
[2022-10-14 18:51] LABS: Pancreatic Elastase, Fecal 224 (>200)
[2022-10-14 18:58] LABS: Calprotectin, Stool 28 ug/g (0-120)
== END | disposition home or self-care (01) ==
LOC: LABSPEC 12:05
PROVIDERS: PCP Family Medicine; Referring Provider Family Medicine; Visit Provider Family Medicine
DX: Z00.01 Encounter for general adult medical examination with abnormal findings (principal); R14.0 Abdominal distension (gaseous); Z83.79 Family history of other diseases of the digestive system
CPT/HCPCS: 82653; 83630; 83993

== ENCOUNTER → 2023-01-19 | Outpatient (CLI) | payer BC, SELFPAY ==
[2023-01-19 10:53] LABS: ALB/GLOB Ratio 1.2 RATIO (0.9-2.4); AST(SGOT) 24 U/L (15-37); Alanine Aminotransfer ALT/SGPT 34 U/L (16-61); Albumin, Serum 3.9 g/dL (3.2-5.0); Alkaline Phosphatase 90 U/L (45-117); Anion Gap 6 (5-15); BUN 13 mg/dL (7-18); BUN/Creat Ratio 13.6 RATIO (10-20); Calcium,Total 9.4 mg/dL (8.5-10.1); Chloride 107 mmol/L (98-107); Cholesterol 157 mg/dL (200); Creatinine, Serum 0.96 mg/dL (0.70-1.30); EST Glomerular Filtration Rate 88 mL/min (>60); Est Glom Filt Rate - Afr Amer 107 mL/min (>60); Globulin 3.2 g/dL (2.2-4.2); Glucose 105 mg/dL (74-106); High Density Lipoprotein 41 mg/dL; PSA,Total - Annual Screen 1.13 ng/mL (0.00-4.00); Potassium 4.7 mmol/L (3.5-5.1); Protein, Total 7.1 g/dL (6.4-8.2); Sodium Level 140 mmol/L (136-145); Triglycerides 106 mg/dL; Very Low Density Lipoprotein 21 mg/dL (5-40)
== END | disposition home or self-care (01) ==
LOC: MFPLAB 09:24
PROVIDERS: PCP Family Medicine; Visit Provider Family Medicine
DX: E78.5 Hyperlipidemia, unspecified (principal); N40.0 Benign prostatic hyperplasia without lower urinary tract symptoms
CPT/HCPCS: 36415; 80053; 80061; 84153; G0103

== ENCOUNTER → 2024-02-26 | Outpatient (CLI) | payer BC, SELFPAY ==
[2024-02-26 10:29] LABS: Alanine Aminotransfer ALT/SGPT 56 U/L (16-61); Cholesterol 172 mg/dL (200); Creatinine, Serum 1.06 mg/dL (0.70-1.30); EST Glomerular Filtration Rate 78 mL/min (>60); Est Glom Filt Rate - Afr Amer 94 mL/min (>60); Ferritin 218 ng/mL (26-388); High Density Lipoprotein 36 mg/dL; Triglycerides 127 mg/dL; Very Low Density Lipoprotein 25 mg/dL (5-40)
[2024-02-27 16:10] LABS: PSA, Total 1.2 ng/mL (0.0-4.0)
== END | disposition home or self-care (01) ==
LOC: MFPLAB 08:36
PROVIDERS: PCP Family Medicine; Visit Provider Family Medicine
DX: Z12.5 Encounter for screening for malignant neoplasm of prostate (principal); E78.5 Hyperlipidemia, unspecified; G47.61 Periodic limb movement disorder; N40.0 Benign prostatic hyperplasia without lower urinary tract symptoms
CPT/HCPCS: 36415; 80061; 82565; 82728; 84153; 84460